=== PATIENT | male | born 1970 | race Caucasian/White ===

== ENCOUNTER 2020-03-04 12:29 | Inpatient (IN) | payer BC ==
[~2020-03-04] VITALS: Ht 170.2 cm; Wt 79.4 kg
--- NOTE | 2020-03-04 12:59 | NUR ---
PT AMBULATORY TO ROOM 11 W/ C/O LOWER PELVIC ABD PAIN AND STATES HAVING TROUBLE STARTING A STREAM WELL HAVING DRIBBLING W/ URINATION. PT ALSO STATES HE HAD DIVERTICULITIS 11 MONTHS AGO. PT STATES HE WENT TO THIS AM AND WAS TOLD TO COME TO ED. BLADDER SCANNER CURRENTLY AT 119 ML. PT ATTEMPTING TO PROVIDE UA SAMPLE AND EMPTY BLADDER FOR SECOND BLADDER SCAN.
[2020-03-04] MEDS ORDERED: ONDANSETRON 2MG/ML, 2ML ONE (13:12)
[2020-03-04] MEDS ORDERED: MORPHINE SULFATE 4 MG/ML, 1ML ONE (13:13)
--- NOTE | 2020-03-04 13:21 | NUR ---
POST VOID BLADDER SCAN 95 ML.
[2020-03-04 13:22] LABS: MICROSCOPIC INDICATED
[2020-03-04] MEDS ORDERED: MORPHINE SULFATE 4 MG/ML, 1ML IVPush PRN (13:30)
[2020-03-04] MEDS ORDERED: ONDANSETRON 2MG/ML, 2ML IVPush ONE (13:30)
[2020-03-04 13:41] LABS: BASOPHILS % (AUTO) 1 % (0-1); EOSINOPHILS % (AUTO) 0 % (1-7); LYMPHOCYTES % (AUTO) 9 % (22-44); MEAN CORPUSCULAR HEMOGLOBIN 34.3 pg (27.5-34.5); MEAN CORPUSCULAR HGB CONC 34.6 g/dL (33.2-36.2); MEAN PLATELET VOLUME 8.4 fL (7.4-10.4); MONOCYTES % (AUTO) 10 % (2-9); NEUTROPHILS % (AUTO) 80 % (42-75); PLATELET COUNT 334 x10^3/uL (130-400); RED BLOOD COUNT 4.37 x10^6/uL (4.38-5.82); RED CELL DISTRIBUTION WIDTH 11.9 % (9.4-14.8)
[2020-03-04 13:42] LABS: MD NO
[2020-03-04 13:52] LABS: ALANINE AMINOTRANSFERASE 20 U/L (12-78); ALBUMIN 3.1 g/dL (3.4-5.0); ANION GAP 11 mmol/L (5-15); CALCIUM 8.8 mg/dL (8.5-10.1); CHLORIDE 102 mmol/L (98-107); CREATININE 0.77 mg/dL (0.7-1.3)
[2020-03-04 13:54] LABS: ALKALINE PHOSPHATASE 102 U/L (45-117); BILIRUBIN,TOTAL 0.7 mg/dL (0.2-1.0); TOTAL PROTEIN 7.7 g/dL (6.4-8.2)
[2020-03-04] MEDS ORDERED: OMNIPAQUE 350 MG/ML, 100ML BOTTLE ONE (14:24)
--- NOTE | 2020-03-04 14:32 | NUR ---
PT RESTING ON GURNEY. NADN. KWON.
--- NOTE | 2020-03-04 14:44 | NUR ---
PT CHART REVIEWED AND PLACED FOR RECHECK.
--- NOTE | 2020-03-04 15:08 | NUR ---
BREAK RN- PT REPORTS NO HOME MEDICATIONS
[2020-03-04] MEDS ORDERED: CEFTRIAXONE PMX 1GM/50ML 50 ML ONE (15:38)
[2020-03-04] MEDS ORDERED: METRONIDAZOLE PMX 500MG/100ML 100 ML ONE (15:38)
--- NOTE | 2020-03-04 15:50 | NUR ---
PT AWARE OF NEED FOR ADMISSION TO [facility]. PT VERBALIZES UNDERSTANDING AND IS AGREEABLE.
--- NOTE | 2020-03-04 15:50 | NUR ---
PER ERP DR. RAMOS NO NEED FOR BLOOD CULTURES X 2 PRIOR TO START OF IV ABX.
[2020-03-04] MEDS ORDERED: METRONIDAZOLE PMX 500MG/100ML 100 ML IVPB ONE (16:00)
[2020-03-04] MEDS ORDERED: CEFTRIAXONE PMX 1GM/50ML 50 ML IV ONE (16:00)
[2020-03-04] MEDS ORDERED: LIDOCAINE 1%, 10ML ONE (16:17)
[2020-03-04] MEDS ORDERED: ACETAMINOPHEN 325 MG TABLET PO PRN (16:30)
[2020-03-04] MEDS ORDERED: ONDANSETRON 2MG/ML, 2ML IVPush PRN (16:30)
[2020-03-04] MEDS ORDERED: NALOXONE 1 MG/ML, 2ML ONE (16:32)
[2020-03-04] MEDS ORDERED: FLUMAZENIL 0.1 MG/1 ML, 5ML ONE (16:32)
[2020-03-04] MEDS ORDERED: FENTANYL PF 100 MCG/2ML ONE (16:32)
[2020-03-04] MEDS ORDERED: MIDAZOLAM 1 MG/ML, 5ML ONE (16:32)
--- NOTE | 2020-03-04 16:32 | NUR ---
PT TAKEN TO IR IN STABLE CONDITION.
--- NOTE | 2020-03-04 17:03 | NUR ---
REPORT GIVEN TO MAHNAZ COLEMAN RN. ALL QUESTIONS ANSWERED. AWAITING PT TO COME BACK FROM IR THEN WILL BE TRANSFERRED TO ROOM 339.
[2020-03-04 17:12] LABS: FREE T4 (FREE THYROXINE) 1.06 ng/dL (0.76-1.46)
[2020-03-04] MEDS: POTASSIUM CHLORIDE 20 MEQ in LACTATED RINGERS 1,000 ML IV SCH (17:42)
[2020-03-04] MEDS: morphine SULFATE 10 MG/ML, 1ML IVPush PRN ×2 (17:42→20:45)
[2020-03-04] MEDS: ENOXAPARIN 40 MG/0.4 ML SQ SCH (17:54)
[2020-03-04 18:01] VITALS: BP 124/87
[2020-03-04 19:55] VITALS: BP 122/80
[2020-03-04 20:53] LABS: MICROSCOPIC AUTO
[2020-03-04] MEDS ORDERED: METRONIDAZOLE PMX 500MG/100ML 100 ML IV SCH (22:00)
[2020-03-05] MEDS: METRONIDAZOLE PMX 500MG/100ML 100 ML IV SCH ×4 (00:15→23:44)
[2020-03-05 00:23] VITALS: BP 121/85
[2020-03-05 02:18] VITALS: BP 124/78
[2020-03-05] MEDS: morphine SULFATE 10 MG/ML, 1ML IVPush PRN ×6 (02:26→21:26)
[2020-03-05 03:52] LABS: BASOPHILS % (AUTO) 1 % (0-1); EOSINOPHILS % (AUTO) 0 % (1-7); LYMPHOCYTES % (AUTO) 6 % (22-44); MEAN CORPUSCULAR HEMOGLOBIN 34.5 pg (27.5-34.5); MEAN CORPUSCULAR HGB CONC 34.9 g/dL (33.2-36.2); MEAN PLATELET VOLUME 8.4 fL (7.4-10.4); MONOCYTES % (AUTO) 8 % (2-9); NEUTROPHILS % (AUTO) 85 % (42-75); PLATELET COUNT 333 x10^3/uL (130-400); RED BLOOD COUNT 4.06 x10^6/uL (4.38-5.82); RED CELL DISTRIBUTION WIDTH 12.3 % (9.4-14.8)
[2020-03-05 03:57] VITALS: BP 129/82
[2020-03-05 03:57] LABS: MD NO
[2020-03-05 04:04] LABS: ANION GAP 6 mmol/L (5-15); CALCIUM 8.4 mg/dL (8.5-10.1); CHLORIDE 104 mmol/L (98-107); CREATININE 1.09 mg/dL (0.7-1.3)
[2020-03-05] MEDS: POTASSIUM CHLORIDE 20 MEQ in LACTATED RINGERS 1,000 ML IV SCH (05:14)
[2020-03-05 08:21] VITALS: BP 132/88
[2020-03-05] MEDS: CEFTRIAXONE PMX 2GM/50ML 50 ML IVPB SCH (08:47)
[2020-03-05 12:42] VITALS: BP 131/84
[2020-03-05] MEDS ORDERED: POTASSIUM CHLORIDE 20 MEQ in LACTATED RINGERS 1,000 ML IV SCH (16:53)
[2020-03-05] MEDS: ENOXAPARIN 40 MG/0.4 ML SQ SCH (16:57)
[2020-03-05 19:15] VITALS: BP 116/77
[2020-03-06 00:09] VITALS: BP 124/83
[2020-03-06] MEDS: morphine SULFATE 10 MG/ML, 1ML IVPush PRN ×5 (02:52→20:34)
[2020-03-06 05:16] LABS: BASOPHILS % (AUTO) 1 % (0-1); EOSINOPHILS % (AUTO) 1 % (1-7); LYMPHOCYTES % (AUTO) 9 % (22-44); MEAN CORPUSCULAR HEMOGLOBIN 34.9 pg (27.5-34.5); MEAN CORPUSCULAR HGB CONC 35.8 g/dL (33.2-36.2); MONOCYTES % (AUTO) 6 % (2-9); NEUTROPHILS % (AUTO) 83 % (42-75); PLATELET COUNT 308 x10^3/uL (130-400); RED BLOOD COUNT 3.63 x10^6/uL (4.38-5.82); RED CELL DISTRIBUTION WIDTH 11.9 % (9.4-14.8)
[2020-03-06 05:27] LABS: ANION GAP 6 mmol/L (5-15); CHLORIDE 100 mmol/L (98-107); CREATININE 0.81 mg/dL (0.7-1.3)
[2020-03-06 06:31] LABS: MD SCAN
[2020-03-06 06:58] VITALS: BP 130/89
[2020-03-06] MEDS: CEFTRIAXONE PMX 2GM/50ML 50 ML IVPB SCH (07:15)
[2020-03-06] MEDS: SIMETHICONE 125 MG CHEW TAB PO SCH ×4 (08:42→20:29)
[2020-03-06] MEDS: METRONIDAZOLE PMX 500MG/100ML 100 ML IV SCH ×2 (08:42→16:28)
[2020-03-06 13:46] VITALS: BP 127/85
[2020-03-06] MEDS: ENOXAPARIN 40 MG/0.4 ML SQ SCH (16:28)
[2020-03-06 20:35] VITALS: BP 121/80
[2020-03-07] MEDS: METRONIDAZOLE PMX 500MG/100ML 100 ML IV SCH ×3 (00:11→16:21)
[2020-03-07 00:16] VITALS: BP 141/92
[2020-03-07] MEDS: morphine SULFATE 10 MG/ML, 1ML IVPush PRN ×2 (00:16→06:25)
[2020-03-07] MEDS: SIMETHICONE 125 MG CHEW TAB PO SCH ×4 (06:21→19:51)
[2020-03-07 06:52] LABS: BASOPHILS % (AUTO) 1 % (0-1); EOSINOPHILS % (AUTO) 1 % (1-7); LYMPHOCYTES % (AUTO) 6 % (22-44); MEAN CORPUSCULAR HEMOGLOBIN 33.9 pg (27.5-34.5); MEAN CORPUSCULAR HGB CONC 34.4 g/dL (33.2-36.2); MEAN PLATELET VOLUME 8.8 fL (7.4-10.4); MONOCYTES % (AUTO) 6 % (2-9); NEUTROPHILS % (AUTO) 85 % (42-75); PLATELET COUNT 389 x10^3/uL (130-400); RED BLOOD COUNT 3.95 x10^6/uL (4.38-5.82); RED CELL DISTRIBUTION WIDTH 12.2 % (9.4-14.8)
[2020-03-07 07:06] LABS: MD NO
[2020-03-07] MEDS: CEFTRIAXONE PMX 2GM/50ML 50 ML IVPB SCH (08:18)
[2020-03-07 08:45] VITALS: BP 119/83
[2020-03-07] MEDS: OXYcodone IR 5MG TABLET PO PRN ×2 (11:27→19:40)
[2020-03-07 15:06] VITALS: BP 129/82
[2020-03-07] MEDS: ENOXAPARIN 40 MG/0.4 ML SQ SCH (16:21)
[2020-03-07 19:32] VITALS: BP 149/95
[2020-03-08] MEDS: METRONIDAZOLE PMX 500MG/100ML 100 ML IV SCH ×2 (00:38→08:04)
[2020-03-08 00:42] VITALS: BP 131/77
[2020-03-08] MEDS: OXYcodone IR 5MG TABLET PO PRN (04:14)
[2020-03-08 06:01] LABS: CHLORIDE 101 mmol/L (98-107)
[2020-03-08 06:06] LABS: BASOPHILS % (AUTO) 1 % (0-1); EOSINOPHILS % (AUTO) 2 % (1-7); LYMPHOCYTES % (AUTO) 10 % (22-44); MEAN CORPUSCULAR HEMOGLOBIN 34.3 pg (27.5-34.5); MEAN CORPUSCULAR HGB CONC 35.1 g/dL (33.2-36.2); MEAN PLATELET VOLUME 8.5 fL (7.4-10.4); MONOCYTES % (AUTO) 8 % (2-9); NEUTROPHILS % (AUTO) 79 % (42-75); PLATELET COUNT 454 x10^3/uL (130-400); RED BLOOD COUNT 3.95 x10^6/uL (4.38-5.82); RED CELL DISTRIBUTION WIDTH 12.1 % (9.4-14.8)
[2020-03-08 06:10] LABS: ALANINE AMINOTRANSFERASE 17 U/L (12-78); ALBUMIN 2.7 g/dL (3.4-5.0); ALKALINE PHOSPHATASE 87 U/L (45-117); ANION GAP 7 mmol/L (5-15); BILIRUBIN,TOTAL 0.7 mg/dL (0.2-1.0); CALCIUM 8.4 mg/dL (8.5-10.1); CREATININE 0.71 mg/dL (0.7-1.3)
[2020-03-08 06:23] LABS: MD NO
[2020-03-08] MEDS: SIMETHICONE 125 MG CHEW TAB PO SCH ×2 (06:48→10:01)
[2020-03-08 07:05] VITALS: BP 120/78
[2020-03-08] MEDS ORDERED: POTASSIUM CHLORIDE 20 MEQ TAB.ER.PRT PO ONE (07:30)
[2020-03-08] MEDS: CEFTRIAXONE PMX 2GM/50ML 50 ML IVPB SCH (07:30)
[2020-03-08] MEDS: HYDROcodone/APAP 10/325 MG TABLET PO PRN ×2 (10:01→14:46)
[2020-03-08 12:57] VITALS: BP 120/92
[2020-03-08] MEDS ORDERED: HYDR-3245 PO ×3 (13:03→13:05)
[2020-03-08] MEDS ORDERED: LEVO750T6 PO (13:03)
== END 2020-03-08 15:40 | disposition home or self-care (01) | DRG 391 ==
LOC: ED 15:41 → EDIP 15:45 → 3N 16:45 → DCLOUNGE 03-08 15:32
PROVIDERS: ADMIT Internal Medicine; ATTEND Hospitalist
PROC: 0W9J3ZZ Drainage of Pelvic Cavity, Percutaneous Approach (ICD-10-PCS; principal; 2020-03-04)
DX: K57.20 Diverticulitis of large intestine with perforation and abscess without bleeding (principal); K65.1 Peritoneal abscess; E87.1 Hypo-osmolality and hyponatremia; D75.89 Other specified diseases of blood and blood-forming organs; E87.6 Hypokalemia; F17.200 Nicotine dependence, unspecified, uncomplicated; D72.825 Bandemia
CPT/HCPCS: 36415; 96374; 96375; 99285; J3490; 49405; 49406; 74177; 80048; 80053; 81001; 83605; 83690; 83735; 84100; 84439; 84443; 85025; 87040; 87070; 87077; 87186; 87205; 99156; 99157; G0378; J0696; J1650; J2250; J2405; J3010; J3480; Q9967; C1729; C1769; J2270; J2310; J7120

== ENCOUNTER → 2020-05-21 | Outpatient (CLI) | payer BC ==
[~2020-05-21] MED LIST: HYDR1TAB53 PO; LEVO750T6 PO
[2020-05-21 15:53] LABS: BASOPHILS % (AUTO) 1 % (0-1); EOSINOPHILS % (AUTO) 1 % (1-7); LYMPHOCYTES % (AUTO) 21 % (22-44); MEAN CORPUSCULAR HEMOGLOBIN 33.7 pg (27.5-34.5); MEAN CORPUSCULAR HGB CONC 34.3 g/dL (33.2-36.2); MEAN PLATELET VOLUME 8.4 fL (7.4-10.4); MONOCYTES % (AUTO) 8 % (2-9); NEUTROPHILS % (AUTO) 70 % (42-75); PLATELET COUNT 272 x10^3/uL (130-400); RED BLOOD COUNT 4.63 x10^6/uL (4.38-5.82); RED CELL DISTRIBUTION WIDTH 14.9 % (9.4-14.8)
[2020-05-21 15:56] LABS: MD NO
[2020-05-21 16:05] LABS: ALBUMIN 3.7 g/dL (3.4-5.0); ANION GAP 7 mmol/L (5-15); CALCIUM 8.6 mg/dL (8.5-10.1); CHLORIDE 110 mmol/L (98-107)
[2020-05-21 16:09] LABS: ALANINE AMINOTRANSFERASE 16 U/L (12-78); ALKALINE PHOSPHATASE 96 U/L (45-117); BILIRUBIN,TOTAL 0.6 mg/dL (0.2-1.0); TOTAL PROTEIN 7.8 g/dL (6.4-8.2)
== END | disposition home or self-care (01) ==
LOC: STAR 14:45
PROVIDERS: ATTEND Surgery
DX: Z01.812 Encounter for preprocedural laboratory examination (principal); Z20.822 Contact with and (suspected) exposure to COVID-19; R00.0 Tachycardia, unspecified
CPT/HCPCS: 36415; 80053; 85025; 93005; U0003

== ENCOUNTER 2020-05-27 10:12 | Inpatient (IN) | payer BC ==
[~2020-05-27] VITALS: Ht 170.2 cm; Wt 84.1 kg
[~2020-05-27 10:12] MED LIST changes: +BUPIVACAINE/PF 0.25% ONE; +BUPIVACAINE/PF 0.5% ONE; +CEFOTETAN 2 GM ONE; +DEXAMETHASONE 4 MG/ML, 1ML ONE; +FENTANYL PF 250 MCG/5ML ONE; +GLYCOPYRROLATE 0.2MG/1ML, 5ML ONE; +INDOCYANINE GREEN 25 MG VIAL ONE; +MIDAZOLAM 1 MG/ML, 2ML ONE; +NEOSTIGMINE 1 MG/ML, 10ML ONE; +ONDANSETRON 2MG/ML, 2ML ONE; +PROPOFOL 10 MG/ML, 20ML ONE; +ROCURONIUM 10MG/ML,5ML ONE
[2020-05-27] MEDS ORDERED: LACTATED RINGERS 1,000 ML IV SCH (11:00)
[2020-05-27] MEDS ORDERED: CHLORHEXIDINE 15 ML UDC PO ONE (11:00)
[2020-05-27] MEDS ORDERED: morphine SULFATE 10 MG/ML, 1ML IVPush PRN (11:30)
[2020-05-27] MEDS ORDERED: hydrALAzine 20 MG/ML, 1ML IV PRN (11:30)
[2020-05-27] MEDS ORDERED: ONDANSETRON 2MG/ML, 2ML IVPush PRN ×2 (11:30→14:30)
[2020-05-27] MEDS ORDERED: MEPERIDINE/PF 25MG/0.5ML IVPush PRN (11:30)
[2020-05-27] MEDS ORDERED: PROMETHAZINE 25 MG/ML, 1ML IVPush PRN (11:30)
[2020-05-27] MEDS ORDERED: OXYcodone 5 MG/5 ML ORAL.SOL UDC PO PRN (11:30)
[2020-05-27] MEDS ORDERED: LABETALOL 5MG/ML, 20ML IV PRN (11:30)
[2020-05-27] MEDS ORDERED: SUGAMMADEX 200 MG/2 ML IVPush ONE (11:42)
[2020-05-27] MEDS ORDERED: ROCURONIUM 10MG/ML,5ML ONE (12:23)
[2020-05-27] MEDS ORDERED: OXYcodone 5 MG/5 ML ORAL.SOL UDC ONE (14:17)
[2020-05-27] MEDS ORDERED: FENTANYL PF 100 MCG/2ML ONE ×2 (14:17→14:44)
[2020-05-27] MEDS: FENTANYL PF 100 MCG/2ML IV PRN ×3 (14:18→14:45)
[2020-05-27] MEDS ORDERED: HYDROmorphone 1 MG/ML, 1ML INJ ONE ×2 (14:26→14:44)
[2020-05-27] MEDS ORDERED: ACETAMINOPHEN 325 MG TABLET PO SCH (14:30)
[2020-05-27] MEDS ORDERED: DEXAMETHASONE 4 MG/ML, 1ML IVPush PRN (14:30)
[2020-05-27] MEDS ORDERED: DIPHENHYDRAMINE 50 MG/ML, 1ML IVPush PRN (14:30)
[2020-05-27] MEDS ORDERED: DIPHENHYDRAMINE 25 MG CAPSULE PO PRN (14:30)
[2020-05-27] MEDS ORDERED: CALCIUM CARBONATE 500 MG TAB.CHEW PO PRN (14:30)
[2020-05-27] MEDS ORDERED: HYDROmorphone 1 MG/ML, 1ML INJ IVPush PRN (14:30)
[2020-05-27] MEDS ORDERED: HALOPERIDOL 5 MG/ML IVPush PRN (14:30)
[2020-05-27] MEDS ORDERED: LORazepam 2 MG/ML, 1ML IVPush PRN (14:30)
[2020-05-27] MEDS: ACETAMINOPHEN 100 ML IVPB SCH ×2 (14:30→20:53)
[2020-05-27] MEDS: ACETAMINOPHEN 500 MG TABLET PO SCH ×2 (14:30→19:55)
[2020-05-27] MEDS ORDERED: TRAZODONE 50MG TABLET PO PRN (14:30)
[2020-05-27] MEDS: HYDROmorphone 1 MG/ML, 1ML INJ IVPush PRN ×4 (14:33→14:55)
[2020-05-27] MEDS ORDERED: ACETAMINOPHEN 650 MG/20.3 ML UDC ONE (14:44)
[2020-05-27] MEDS ORDERED: D5%-0.45NACL+KCL 20MEQ 1,000 ML IV SCH (15:39)
[2020-05-27] MEDS: PIPERACILLIN/TAZO/PMX 3.375GM 50 ML IVPB SCH ×2 (16:30→22:42)
[2020-05-27] MEDS: OXYcodone IR 5MG TABLET PO PRN ×2 (17:58→22:42)
[2020-05-27 19:09] VITALS: BP 117/80
[2020-05-28 00:14] VITALS: BP 113/77
[2020-05-28] MEDS: OXYcodone IR 5MG TABLET PO PRN ×4 (02:27→13:53)
[2020-05-28] MEDS: ACETAMINOPHEN 100 ML IVPB SCH ×2 (02:27→08:30)
[2020-05-28] MEDS: ACETAMINOPHEN 500 MG TABLET PO SCH ×2 (02:30→08:34)
[2020-05-28 02:59] LABS: BASOPHILS % (AUTO) 0 % (0-1); EOSINOPHILS % (AUTO) 0 % (1-7); LYMPHOCYTES % (AUTO) 8 % (22-44); MD NO; MEAN CORPUSCULAR HEMOGLOBIN 33.6 pg (27.5-34.5); MEAN CORPUSCULAR HGB CONC 33.7 g/dL (33.2-36.2); MEAN PLATELET VOLUME 8.2 fL (7.4-10.4); MONOCYTES % (AUTO) 8 % (2-9); NEUTROPHILS % (AUTO) 84 % (42-75); PLATELET COUNT 232 x10^3/uL (130-400); RED BLOOD COUNT 4.16 x10^6/uL (4.38-5.82); RED CELL DISTRIBUTION WIDTH 14.3 % (9.4-14.8)
[2020-05-28 03:06] LABS: ANION GAP 8 mmol/L (5-15); CALCIUM 8.4 mg/dL (8.5-10.1); CHLORIDE 106 mmol/L (98-107); CREATININE 1.18 mg/dL (0.7-1.3)
[2020-05-28 04:24] VITALS: BP 119/79
[2020-05-28] MEDS: PIPERACILLIN/TAZO/PMX 3.375GM 50 ML IVPB SCH ×2 (05:06→10:27)
[2020-05-28 06:50] VITALS: BP 127/91
[2020-05-28] MEDS ORDERED: ENOXAPARIN 40 MG/0.4 ML SQ SCH (09:00)
[2020-05-28] MEDS ORDERED: OXYC1TAB14 PO (14:25)
[2020-05-28] MEDS ORDERED: AMOX1TAB64 PO (14:25)
== END 2020-05-28 15:11 | disposition home or self-care (01) | DRG 329 ==
LOC: ORIP 10:12 → 4NE 15:38 → DCLOUNGE 05-28 14:57
PROVIDERS: ADMIT Surgery; ATTEND Surgery
PROC: 0W9J4ZZ Drainage of Pelvic Cavity, Percutaneous Endoscopic Approach (ICD-10-PCS; 2020-05-27)
PROC: 8E0W4CZ Robotic Assisted Procedure of Trunk Region, Percutaneous Endoscopic Approach (ICD-10-PCS; 2020-05-27)
PROC: 0DJD8ZZ Inspection of Lower Intestinal Tract, Via Natural or Artificial Opening Endoscopic (ICD-10-PCS; 2020-05-27)
PROC: 0DT Gastrointestinal System, Resection (ICD-10-PCS; principal; 2020-05-27 13:00)
DX: K57.20 Diverticulitis of large intestine with perforation and abscess without bleeding (principal); K65.1 Peritoneal abscess
CPT/HCPCS: 36415; 80048; 85025; 86850; 86900; 87070; 87075; 87077; 87102; 87106; 87186; 87205; 88307; G0378; J0131; J1100; J1170; J1650; J2250; J2405; J2543; J2704; J2710; J3010; J7120